=== PATIENT | male | born 1950 | race Caucasian/White ===

== ENCOUNTER 2017-12-07 06:14 | Observation (INO) ==
[2017-12-07] MEDS ORDERED: Ampicillin/Sulbactam Inj 3 GM in Sodium Chloride 0.9% Inj 100 ML IV.SIG PRN (06:39)
[2017-12-07] MEDS ORDERED: Metoprolol Tartrate 25 MG Tablet PO SCH (06:45)
[2017-12-07] MEDS ORDERED: Chlorhexidine Gluconate 2% 1 Pack (2 Cloths) TOPICAL SCH (06:45)
[2017-12-07] MEDS ORDERED: Sodium Chlor 0.9% Inj 500 ML IV.SIG SCH (07:00)
[2017-12-07] MEDS ORDERED: Lidocaine 1%/Epinephrine 1:100,000 Inj 30 ML Vial ONE (07:20)
[2017-12-07 07:21] LABS: Hemoglobin 16.6 gm/dL (13.0-17.0); Mean Corpuscular HGB Conc 35.3 % (32.0-36.0); Mean Corpuscular Hemoglobin 31.4 pg (27.0-34.0); Mean Corpuscular Volume 88.8 fL (80.0-100.0); Mean Platelet Volume 8.1 fL (7.0-11.0); Platelet Count 225 th/mm3 (150-450); Red Blood Count 5.29 mil/mm3 (4.50-5.90); Red Cell Distribution Width 12.6 % (11.6-17.2); White Blood Count 8.8 th/mm3 (4.0-11.0)
[2017-12-07] MEDS ORDERED: Famotidine PF Inj 20 MG/2 ML Vial ONE (07:21)
[2017-12-07] MEDS ORDERED: Lidocaine PF 1% Inj 5 ML Syringe INFILTRATN ONE (07:55)
[2017-12-07] MEDS ORDERED: Neostigmine Inj 5 MG/5 ML Syringe IV.PUSH ONE (07:55)
[2017-12-07] MEDS ORDERED: Sugammadex Inj 200 MG/2 ML Vial IV.PUSH ONE (08:46)
[2017-12-07] MEDS ORDERED: fentaNYL Citrate Inj 100 MCG/2 ML Ampul ONE (09:21)
--- NOTE | 2017-12-07 16:24 | ECG ---
Date Performed: 12/07/2017 Time Performed: 07:09:01 PTAGE: 67 years EKG: Sinus rhythm Since the previous tracing, no significant change noted NORMAL ECG PREVIOUS TRACING : 09/07/2003 12.14 DOCTOR: Cade Paige Interpretating Date/Time 12/07/2017 16:20:42
[2017-12-07] MEDS: Ampicillin/Sulbactam Inj 1,500 MG IV.SIG SCH ×4 (17:38→23:26)
[2017-12-08 05:13] VITALS: PULSE 68; TEMP 96.4
[2017-12-08 08:38] VITALS: BP 116/64; RESP 18
[2017-12-08] MEDS ORDERED: Budesonide-Formoterol 160/4.5 MCG 6 GM Inhaler INH SCH (09:00)
[2017-12-08] MEDS: Ampicillin/Sulbactam Inj 1,500 MG IV.SIG SCH ×2 (09:30)
[2017-12-08 15:22] VITALS: O2SAT 98
--- NOTE | 2018-01-15 13:56 | MP ---
cc: Jerardo Garland MD DATE OF OPERATION: SURGEON: Jerardo Garland MD POSTOPERATIVE DIAGNOSES: 1. Chronic pansinusitis. 2. Nasal airway obstruction. 3. Nasal septal deviation. 4. Hypertrophic inferior turbinates. POSTOPERATIVE DIAGNOSES: 1. Chronic pansinusitis. 2. Nasal airway obstruction. 3. Nasal septal deviation. 4. Hypertrophic inferior turbinates. OPERATION PERFORMED: 1. Open repair of nasal septal fracture. 2. Bilateral submucosal resection of inferior turbinates. 3. Bilateral endoscopic total ethmoidectomy. 4. Bilateral endoscopic maxillary antrostomy with removal of maxillary sinus tissue. 5. Bilateral endoscopic exploration of frontal sinus duct with balloon dilation. 6. Bilateral endoscopic sphenoidotomy with removal of sphenoid sinus tissue. INDICATIONS: Documented in the history and physical. DETAILS OF PROCEDURE: The patient was taken to OR #2 and placed in the supine position. Following induction of general anesthesia and intubation, the nose was packed bilaterally with cotton pledgets saturated in 0.05% oxymetazoline. The septal mucosa and inferior turbinates were injected with a total of 10 mL of 1% Xylocaine with epinephrine 1:100,000. He was then prepped and draped for surgery. Packing was removed and a hemitransfixion incision was made in the left nasal vestibule. Through this incision, the mucosa of the septum was elevated as far as the junction of the bony and cartilaginous septum. This gave an end on view of the quadrangular cartilage, which showed evidence of old long healed septal fracture with numerous comminuted fragments extending into the airway, bilaterally. The anterior end of the quadrangular cartilage was extended into the left nasal vestibule. A cumulative area of 2 x 2.5 cm of the cartilage was removed, preserving 1.5 cm dorsal and caudal cartilaginous struts. This was done in a piecemeal fashion using a Toribio elevator and Mushtaq-Haven forceps on the anterior cartilaginous strut its inferior most 2 mm was removed sharply to allow the strut to return to the midline just above the nasal spine. The mucosa was then elevated from the bony septum and the maxillary crest and these were then removed with [place] forceps on the bony septum and a 6 mm chisel on the maxillary crest. This was completed, preserving the anterior nasal spine. Incision was then closed with a running suture of 4-0 chromic and the mucosal layers of the septum were approximated to each other with a quilting stitch of 4-0 plain gut. The inferior turbinates were addressed next. They were fractured out medially and stab incisions were opened along their inferior surfaces. Through these incisions, the submucosal soft tissue was reduced using a curette and preserving the conchal bone. The incisions were then cauterized with a suction Bovie at 35 tomas and the remnants of the inferior turbinates were then relateralized to the lateral nasal wall. From this point forward, the operation was completed using endoscopic visualization with a Storz 0-degree fiberoptic scope. Additional injections of lidocaine and epinephrine were made into the middle turbinates, as well as the uncinate processes and the ethmoid cells bilaterally. The left side was addressed first beginning with amputation of the middle turbinate using through-cutting Blakesley forceps and the power microdebrider. Uncinate process was then removed sharply and the anterior ethmoid cells were entered with blunt and power dissection. Bone fragments and soft tissue were removed back as far as the basal lamella. The basal lamella was then reduced with the power debrider medially to laterally and the posterior cells were entered. They were also exonerated in the same fashion with blunt dissection. This was carried back as far as the rostrum of the sphenoid. This was all included in the specimen labeled left sinus contents. Next, on the left side, the maxillary ostium was enlarged using Stammberger forceps and the power debrider and the cavity was debrided of mucopurulent material and thick polypoid tissue. The sphenoid sinus was then addressed. The ostium was enlarged using a #10 suction and the power debrider. The cavity was then debrided with the Blakesley forceps. This was all included in the left sinus specimen contents. The right side was then addressed and operated in the same fashion beginning with amputation of the middle turbinate, followed by uncinectomy, exenteration of anterior and posterior ethmoids and enlargement of the sphenoid and maxillary ostium and debridement of the cavities, all included in the specimen labeled "right sinus contents." All cavity was then irrigated and suctioned and packed with cotton pledgets saturated in oxymetazoline which remained in place while the balloon dilations of frontal ducts were completed, the left side first. The balloon was advanced up into the sinus, and dilated superiorly at the mid point and inferiorly at the junction with the ethmoid cavities at each level to a pressure of 12 atmospheres, then removed and the cavity was debrided of bone fragments and soft tissue and verified patent all the way into the frontal sinus. The right side was operated in the same fashion. The packing was then removed from all sinus cavities. There were once again irrigated with iced saline. The ethmoid, maxillary, and sphenoids were filled with Stammberger sinus foam and the inferior 1/3 of the nasal vault was packed with Merocel tampons coated in mupirocin ointment bilaterally. The operation was then terminated. The patient was reversed from anesthesia and taken to recovery in good condition. There were no complications. ESTIMATED BLOOD LOSS: 400 mL Jerardo Garland MD JMNoam/ct , 12:36 PM , 12:45 PM
== END 2017-12-08 09:00 | disposition home or self-care (01) ==
LOC: PH3 06:14 → HSDI 06:14 → PHSDC 06:14
PROVIDERS: ADMIT Otolaryngology; ATTEND Otolaryngology